=== PATIENT | female | born 1970 | race Caucasian/White ===

== ENCOUNTER → 2016-10-20 09:40 | Outpatient (CLI) | payer BC ==
[2016-10-20 10:08] LABS: BASOPHILS 0.2 % (0-2); EOSINOPHILS 6.6 % (0-7); HEMATOCRIT 44.6 % (36.0-48.0); HEMOGLOBIN 15.7 g/dL (12-16); IMMATURE GRANULOCYTES 0.2 % (0-5); LYMPHOCYTES 34.5 % (15-50); MCH 31.6 pg (26.0-34.0); MCHC 35.2 g/dL (31.0-37.0); MCV 89.7 fL (80.0-100.0); MONOCYTES 6.7 % (2-11); NEUTROPHILS 51.8 % (40-80); PLATELET COUNT 258 10x3/uL (130-400); RBC 4.97 10x6/uL (4.00-5.40); WBC 6.2 10x3/uL (4.8-10.8)
== END | disposition home or self-care (01) ==
LOC: D.LAB 09:40
PROVIDERS: Family Medicine
DX: R63.5 Abnormal weight gain (principal)